=== PATIENT | female | born 1990 | race Caucasian/White ===

== ENCOUNTER 2021-08-03 07:36 | Outpatient (CLI) | payer OTHER ==
[~2021-08-03 07:36] MED LIST: NKA
== END 2021-08-03 08:43 | disposition home or self-care (01) ==
LOC: SONOGRAMA 07:36
PROVIDERS: ATTEND Pathology Anatomic Pathology & Clinical Pathology
DX: E04.1 Nontoxic single thyroid nodule (principal)

== ENCOUNTER 2021-10-08 08:11 | Outpatient (CLI) | payer OTHER | END 2021-10-08 08:13 | disposition home or self-care (01) | LOC: SONOGRAMA 08:11 | PROVIDERS: ATTEND Pathology Anatomic Pathology & Clinical Pathology | DX: E04.1 Nontoxic single thyroid nodule (principal) ==